=== PATIENT | female | born 1975 | race Caucasian/White ===

== ENCOUNTER 2017-03-17 06:06 | Inpatient (IN) ==
[2017-03-17] MEDS ORDERED: SODIUM CHLORIDE 0.9% INJ ONE ×2 (06:33→10:11)
[2017-03-17] MEDS ORDERED: PHENERGAN IV ONE ×2 (06:33→10:11)
--- NOTE | 2017-03-17 06:39 | PROVIDER DOCUMENTATION ---
HPI-Syncope/Dizziness - General Chief Complaint: Syncope Stated Complaint: SYNCOPE Time Seen by Provider: 03/17/17 06:21 Source: patient, family Allergies/Adverse Reactions: Patient Allergies Allergy/AdvReac Type Severity Reaction Status Date / Time morphine Allergy Mild ITCHING Verified 04/29/13 13:06 Home Medications: Home Medication List Medication Instructions Recorded Confirmed Last Taken Type Escitalopram [Lexapro] 20 mg PO DAILY 04/29/13 03/17/17 03/16/17 07:00 History Insulin Aspart [Novolog] 45 unit SQ BID 04/29/13 03/17/17 03/16/17 17:00 History ATORVAstatin [Lipitor] 10 mg PO DAILY 03/17/17 03/17/17 03/16/17 08:00 History Insulin Detemir [Levemir] 60 unit SQ BID 03/17/17 03/17/17 03/16/17 17:00 History - History of Present Illness-Syncope/Dizzy Nature of Presenting Problem: 41 yo WF had carpal tunnel surgery yesterday. Took a half of a hydrocodone yesterday afternoon and slept thru the night with reasonable comfort. She awoke this morning and got up to urinate. She was aware of increased pain in right wrist. As she was finishing on the toilet, she felt a wave of nausea and awoke on the floor. She was unaware of how long a time passed. She urinated on her self in the ambulance, but was alert awake and aware. Prior Episodes: reports: no prior history Onset/Duration: reports: this morning Timing: reports: still present Position/Activity at time of episode: reports: sitting Symptoms prior to episode: reports: none, lightheaded, nausea/vomiting, diaphoresis. denies: visual disturbance, racing heart, abdominal pain, recent head trauma, rapid heart beat Context: reports: lost consciousness, collapsed, incontinent of urine Loss of Consciousness: unsure Location of injury. (If syncope resulted in an injury.): reports: head Current Symptoms: reports: nausea, headache, lightheaded. denies: fever, chills , chest pain, breathing difficulty, short of breath, blurred vision Recently Seen Here or By Another Healthcare Provider: No - Dizziness Severity in ED: reports: moderate Dizziness Related Current/Associated Symptoms: reports: nausea/vomiting, headache, lightheaded Any recent trauma/injury?: reports: to head Review of Systems - Adult - REVIEW OF SYSTEMS - ADULT Constitutional: reports: no symptoms reported Eyes: reports: no symptoms reported Ears, Nose, Mouth & Throat: reports: other Cardiovascular: reports: no symptoms reported Respiratory: reports: no symptoms reported Gastrointestinal: reports: nausea Genitourinary: reports: no symptoms reported Musculoskeletal: reports: no symptoms reported Integumentary: reports: no symptoms reported Neurological: reports: no symptoms reported Psychiatric: reports: no symptoms reported Endocrine: reports: no symptoms reported Hematologic/Lymphatic: reports: no symptoms reported Allergic/Immunologic: reports: no symptoms reported All Other Systems: Reviewed and Negative Past History - Adult - PAST MEDICAL HISTORY-ADULT Review of Records: reports: Nursing Assessment Review, Medications Reviewed, Social history reviewed & non-contributory. Diabetes Type: Type 2 Diabetes controlled by:: PO Meds - PRIOR SURGERIES/PROCEDURES Surgical/Procedure History: reports: other (CTS, laparascopy) - FAMILY HISTORY Family History: reviewed, not pertinent - SOCIAL HISTORY Smoking: non-smoker Substance Use: none/never Alcohol Use Frequency: never Physical Exam-General - PHYSICAL EXAM-ADULT Initial Vital Signs Reviewed: Yes - CONSTITUTIONAL General Appearance: alert, mild distress - EYES Eyes: PERRL/EOMI, pink conjunctivae, other (right frontotemporal area is tender and slightly swollen) - HEAD, EARS, NOSE, MOUTH & THROAT HENMT: moist mucous membranes - NECK Neck: non-tender, full range of motion. negative: carotid bruit, C-spine tenderness - RESPIRATORY Respiratory: lungs clear, normal breath sounds, no pleuratic chest pain, no respiratory distress, no accessory muscle use - CARDIOVASCULAR Cardiovascular: normal peripheral pulses, regular rate, rhythm, no edema, no JVD - GASTROINTESTINAL (ABDOMEN) Abdominal Exam: normal bowel sounds, non tender, soft. negative: tenderness - MUSCULOSKELETAL Back Exam: no CVA tenderness Extremity: no pedal edema, no calf tenderness, other (PAULA bandage on right hand and wrist, but able to move through reasonable ROM, there is bruising on the palm but not excessive) - SKIN Integumentary: normal color, normal turgor - NEUROLOGIC Neurologic: grossly normal, no motor/sensory deficits - PSYCHIATRIC Psych/Mental Status: normal thought content, normal thought process, oriented x 3, anxious Progress - PLAN OF CARE/RESULTS Progress/Plan/Lab Results: Vital Signs - 8 hr 07/14/17 06:19 Temperature 98.0 F Pulse Rate 92 H Respiratory Rate 20 Blood Pressure 152/77 O2 Sat by Pulse Oximetry 97 Laboratory Results - last 24 hr 03/17/17 03/17/17 03/17/17 06:12 07:26 07:26 WBC 7.23 RBC 4.27 Hgb 12.5 Hct 36.0 L MCV 84.3 MCH 29.3 MCHC 34.7 RDW Std Deviation 12.4 Plt Count 193 MPV 10.9 H Immature Gran % (Auto) 0.0 Neut % (Auto) 79.9 H Lymph % (Auto) 12.3 L [place] % (Auto) 6.9 Eos % (Auto) 0.8 Baso % (Auto) 0.1 Immature Gran # (Auto) 0.00 Neut # (Auto) 5.77 Lymph # (Auto) 0.89 L [place] # (Auto) 0.50 Eos # (Auto) 0.06 Baso # (Auto) 0.01 Sodium 134 L Potassium 3.8 Chloride 97 L Carbon Dioxide 21 L Anion Gap 16 BUN 7 L Creatinine 0.6 Estimated GFR/1.73 m2 > 60 BUN/Creatinine Ratio 12 Glucose 260 H POC Glucose 264 H Calculated Osmolality 275 Calcium 8.3 L Total Bilirubin 0.78 AST 41 H ALT 50 H Alkaline Phosphatase 65 Troponin T Total Protein 7.4 Albumin 3.9 Globulin 3.5 Albumin/Globulin Ratio 1.1 Urine Source Urine Color Urine Turbidity Urine pH Ur Specific [place] Urine Protein Ur Glucose (Stick) Ur Ketones (Stick) Urine Blood Urine Nitrite Urine Bilirubin Urobilinogen Dipstick Urine Leukocytes Urine WBC (Auto) Urine RBC (Auto) U Epithel Cells (Auto) Urine Bacteria (Auto) 03/17/17 03/17/17 07:26 10:48 WBC RBC Hgb Hct MCV MCH MCHC RDW Std Deviation Plt Count MPV Immature Gran % (Auto) Neut % (Auto) Lymph % (Auto) [place] % (Auto) Eos % (Auto) Baso % (Auto) Immature Gran # (Auto) Neut # (Auto) Lymph # (Auto) [place] # (Auto) Eos # (Auto) Baso # (Auto) Sodium Potassium Chloride Carbon Dioxide Anion Gap BUN Creatinine Estimated GFR/1.73 m2 BUN/Creatinine Ratio Glucose POC Glucose Calculated Osmolality Calcium Total Bilirubin AST ALT Alkaline Phosphatase Troponin T < 0.010 Total Protein Albumin Globulin Albumin/Globulin Ratio Urine Source CLEAN CATCH Urine Color STRAW Urine Turbidity CLEAR Urine pH 7.5 Ur Specific [place] 1.005 Urine Protein NEGATIVE Ur Glucose (Stick) >1000 A Ur Ketones (Stick) 10 A Urine Blood NEGATIVE Urine Nitrite NEGATIVE Urine Bilirubin NEGATIVE Urobilinogen Dipstick NORMAL Urine Leukocytes NEGATIVE Urine WBC (Auto) <10 Urine RBC (Auto) <10 U Epithel Cells (Auto) <10 Urine Bacteria (Auto) NEGATIVE Orders Category Date Time Status FSBS [Finger Stick Blood Sugar (ED)] DIRECTED Care 03/17/17 06:07 Active HEAD W/O CONTRAST [CT] Stat Exams 03/17/17 06:32 Completed CBC WITH ELECTRONIC DIFF [HEME] Stat Lab 03/17/17 07:26 Completed COMPREHENSIVE METABOLIC PANEL [CHEM] Stat Lab 03/17/17 07:26 Completed TROPONIN T Stat Lab 03/17/17 07:26 Completed URINALYSIS W/POSS RFLX CULT [URINALYSIS] Stat Lab 03/17/17 10:48 Completed 0.9% Sodium Chloride Inj [Ns] 500 ml Med 03/17/17 07:43 Discontinued .ROUTE As Directed 0.9% Sodium Chloride Inj [Ns] 500 ml Med 03/17/17 07:29 Discontinued IV 999 mls/hr Promethazine [Phenergan] Med 03/17/17 06:33 Discontinued 25 mg IV NOW ONE Promethazine [Phenergan] Med 03/17/17 10:11 Discontinued 25 mg IV NOW ONE Sodium Chloride 0.9% Med 03/17/17 06:33 Discontinued 10 ml INJ NOW ONE Sodium Chloride 0.9% Med 03/17/17 10:11 Discontinued 10 ml INJ NOW ONE EKG [EKG] Stat Ther 03/17/17 06:07 Draft Result Diagrams: 03/17/17 07:26 03/17/17 07:26 - REASSESSMENT Reassessment #1 Time Reassessed: 10:00 (weak, dizzy, nausea) Status: improving Reassessment #2 Time Reassessed: 11:30 Status: unchanged - CT/MRI 1 CT Study: Head Impression: Normal CT Results: no acute pathology - CONSULTS/PCP/HOSPITALIST Notification #1 *Consult/PCP/Hospitalist*: Cates Time Discussed: 12:45 Reason/Comments: spoke with Denilson M Consult Disposition: Admit Departure - Departure Date of Disposition Decision: 03/17/17 Time of Disposition Decision: 12:45 DIAGNOSIS: Post-concussion vertigo, Nausea Disposition: ADMITTED INPATIENT 09 Certified Medical Emergency: Emergent Condition: Stable Referrals and Follow-Ups: None,PCP [Clinical Support] - - Critical Care Note This patient required my direct & personal management of CC.: Yes
--- NOTE | 2017-03-17 06:41 | EKG Report ---
Test Performed on : 03/17/2017 06:14:38 AM Test Reason : syncope Blood Pressure : / mmHG Vent. Rate : 092 BPM Atrial Rate : 092 BPM P-R Int : 162 ms QRS Dur : 086 ms QT Int : 390 ms P-R-T Axes : 047 -06 004 degrees QTc Int : 482 ms Normal sinus rhythm. Moderate voltage criteria for LVH, may be normal variant Prolonged QT Abnormal ECG No previous ECGs available Unconfirmed Result
--- NOTE | 2017-03-17 07:11 | Diag Imaging Result Doc PS360 ---
EXAM: HEAD W/O CONTRAST HISTORY: fall, syncope, right forehead/temporal pain TECHNIQUE: CT brain without COMPARISON: None. FINDINGS: No parenchymal hemorrhage. No epidural or subdural hematoma. No subarachnoid hemorrhage. No mass identified on this noncontrasted exam. No hydrocephalus. No sinus opacification. No fracture. IMPRESSION: No hemorrhage. No injury. Electronically signed by Kameron Moya 03/17/2017 7:09 AM
[2017-03-17] MEDS ORDERED: NS 500 ML IV ONE (07:29)
[2017-03-17] MEDS ORDERED: NS 500 ML ONE (07:43)
[2017-03-17 07:47] LABS: MANUAL DIFF NEEDED? NO
[2017-03-17 07:49] LABS: BASO% 0.1 % (0.0-0.8); EOS# 0.06 X1000 (0.0-0.7); EOS% 0.8 % (0.0-10.0); HEMOGLOBIN 12.5 g/dL (12.0-16.0); LYMPH# 0.89 X1000 (1.2-3.4); LYMPH% 12.3 % (20.5-51.1); MCH 29.3 PG (27-31); MCHC 34.7 g/dL (33-37); MCV 84.3 FL (81-99); MONO% 6.9 % (1.7-9.3); MPV 10.9 FL (7.4-10.4); NEUT% 79.9 % (42.2-75.2); PLT 193 X1000 (130-400); RBC 4.27 XMIL (4.2-5.4)
[2017-03-17 08:13] LABS: AGAP 16; ALBUMIN 3.9 g/dL (3.5-5.0); ALKALINE PHOSPHATASE 65 U/L (32-104); BUN 7 mg/dL (8-22); CALCIUM 8.3 mg/dL (8.8-10.2); CHLORIDE 97 mmol/L (98-107); COSMO 275; GOT 41 U/L (10-30); GPT 50 U/L (10-36); POTASSIUM 3.8 mmol/L (3.5-5.1); SODIUM 134 mmol/L (136-145); TCO2 21 mmol/L (25-35); TOTAL BILIRUBIN 0.78 mg/dL (0.20-1.00); TOTAL PROTEIN 7.4 g/dL (6.3-8.3)
[2017-03-17 10:58] LABS: URINE CULTURE NEEDED? NO; URINE MICRO REVIEW NEEDED? NO; URINE SOURCE CLEAN CATCH
[2017-03-17 11:05] LABS: BILIRUBIN URINE NEGATIVE (NEGATIVE); BLOOD URINE NEGATIVE (NEGATIVE); COLOR STRAW; GLUCOSE URINE >1000 mg/dL (NEGATIVE); LEUKOCYTES URINE NEGATIVE (NEGATIVE); NITRITE URINE NEGATIVE (NEGATIVE); PH URINE 7.5; PROTEIN URINE NEGATIVE (NEGATIVE); SP GRAVITY URINE 1.005; TURBIDITY URINE CLEAR (CLEAR); UROBILINOGEN URINE NORMAL (NORMAL)
[2017-03-17 11:06] LABS: UR EPITHELIAL CELLS <10 /HPF (<10); URINE BACTERIA NEGATIVE /HPF; URINE RBC <10 /HPF (<10); URINE WBC <10 /HPF (<10)
[2017-03-17] MEDS ORDERED: PHENERGAN IV PRN (14:20)
[2017-03-17] MEDS ORDERED: SODIUM CHLORIDE 0.9% INJ PRN (14:20)
[2017-03-17] MEDS ORDERED: ZOFRAN IV PRN (14:20)
[2017-03-17 14:25] LABS: HEMOGLOBIN A1C 7.3 % (4.8-6.0)
--- NOTE | 2017-03-17 14:28 | Diag Imaging Result Doc PS360 ---
EXAM: CHEST-PORTABLE HISTORY: dyspnea TECHNIQUE: Portable upright AP COMPARISON: None. FINDINGS: The lungs are well expanded. The heart is not enlarged. The vessels are not distended. No pneumonia. No pleural effusions identified. IMPRESSION: Negative chest. Electronically signed by Kameron Moya 03/17/2017 2:25 PM
[2017-03-17 14:38] LABS: ACETONE SERUM NEGATIVE (NEGATIVE)
[2017-03-17 15:00] LABS: AGAP 22; BUN 6 mg/dL (8-22); CALCIUM 8.9 mg/dL (8.8-10.2); CHLORIDE 96 mmol/L (98-107); COSMO 279; MAGNESIUM 1.7 mg/dL (1.5-2.7); POTASSIUM 4.5 mmol/L (3.5-5.1); SODIUM 137 mmol/L (136-145); TCO2 19 mmol/L (25-35)
--- NOTE | 2017-03-17 15:04 | Diag Imaging Result Doc PS360 ---
EXAM: US GB < RUQ (LIMITED) HISTORY: n/v elevated alt/ast TECHNIQUE: COMPARISON: None. FINDINGS: Difficult exam due to bowel gas and patient's body habitus. The aorta and inferior vena cava are poorly seen. There is fatty infiltration of the liver. Normal gallbladder. No stones. The gallbladder wall is not thickened. The common bile duct measures 6 mm. Normal right kidney. No hydronephrosis. No ascites in the right upper quadrant. The pancreas is poorly seen. IMPRESSION: Fatty infiltration of the liver. Electronically signed by Kameron Moya 03/17/2017 3:02 PM
[2017-03-17] MEDS: NS 1,000 ML IV SCH (16:10)
[2017-03-17] MEDS: LOVENOX SUBQ SCH (17:19)
--- NOTE | 2017-03-17 17:31 | HISTORY AND PHYSICAL ---
CHIEF COMPLAINT: Syncope. HISTORY OF PRESENT ILLNESS: Mrs. Taylor is a 41-year-old female with a history of morbid obesity, poorly controlled type 2 diabetes requiring large amounts of insulin, hypertension and hyperlipidemia who is status post right carpal tunnel release yesterday in [place] by Dr. Taylor. She was in her normal state of health last night, woke up this morning started having some vomiting, went to the bathroom went and sat down on the toilet to urinate. She then just remembers waking up on the floor at which time she came to the ER. This was an unwitnessed syncopal episode, time of unconsciousness is unknown. When she woke up she states that she was nauseated and dizzy and disoriented. She denies any chest pain. No unilateral weakness. No shortness of breath, cough, congestion, fever or chills. No diarrhea, no lower extremity edema and no orthopnea. In the ER she had labs and diagnostics done. Her initial labs were fairly consistent with at least mild diabetic ketoacidosis, she had an elevated metabolic anion gap acidosis with a blood sugar of 264. Urine showed greater than 1000 glucose and 10 ketones. Since that time she has been given IV fluids and we are now going to recheck a BMP to check her fluid and electrolyte status. Head CT done did not show anything acute. Her vitals are stable, there are no focal deficits and she is now going to be admitted for observation status. PAST MEDICAL HISTORY: 1. Uncontrolled type 2 diabetes requiring insulin. The patient only reports checking her blood sugar around twice a week. She is on around 200 units of insulin daily. 2. Hypertension. 3. Hyperlipidemia. 4. Morbid obesity. SURGICAL HISTORY: She has had , right carpal tunnel release, D and C . SOCIAL HISTORY: Patient denies tobacco, alcohol or drug use. She is , and daughter at the bedside. FAMILY HISTORY: Noncontributory. REVIEW OF SYSTEMS: Fourteen-point review of systems obtained found to be negative with the exception of the HPI. ALLERGIES: Morphine. HOME MEDICATIONS: Lipitor 10 mg daily, Lexapro 20 mg daily, NovoLog 45 units subcutaneous b.i.d., Levemir 60 units subcu b.i.d. PHYSICAL EXAMINATION: VITAL SIGNS: Blood pressure is 152/77, heart rate is 120, respiratory 22, O2 saturation 97% on room air, temperature is 98 degrees. GENERAL: Morbidly obese female laying in hospital bed in no acute distress. NEUROLOGIC: The patient is awake, alert, oriented. She follows commands without focal deficits. HEENT: Head atraumatic and normocephalic. Pupils equal, round, reactive to light. Oral mucosa dry. Trachea is midline. No JVD. No carotid bruits. CHEST: Clear to auscultation bilaterally. CV: Regular rate and rhythm. S1-S2 is noted. There are no murmurs. GI: Soft, nondistended, nontender. Bowel sounds are active. EXTREMITIES: Right upper extremity with Avinash bandage that is clean, dry and intact. Lower extremities without edema, clubbing or cyanosis. Pulses are palpable bilaterally. DIAGNOSTIC DATA: Head CT does not show anything acute. Chest x-ray is pending. EKG sinus rhythm, 92 beats a minute with no acute ST or T abnormalities. Lab work WBC 7.23, hemoglobin 12.5, hematocrit 36, platelet count 193,000. Sodium 134, potassium 3.8, chloride 97, CO2 21, anion gap 16, BUN 7, creatinine 0.6, glucose 260, calcium 8.3, AST 41, ALT 50, alkaline phosphatase 65, troponin negative, albumin 3.9, UA shows greater than 1000 glucose, 10 ketones. ASSESSMENT AND PLAN: 1. Syncope: This is felt to be vasovagal complicated by dehydration/volume depletion. Initial labs are consistent with volume depletion and possibly diabetic ketoacidosis. We are going to give her some IV fluids and check an echocardiogram and continue to trend her enzymes. She is at risk for cardiovascular and cerebrovascular disease with poorly controlled diabetes and morbid obesity so will make sure watch telemetry and follow up on echocardiogram. 2. Nausea, vomiting: Unclear of the significance, she has very mildly elevated AST and ALT. Will check a right upper quadrant ultrasound, continue IV fluids and antiemetics. If she is in DKA we will of course put her on the DKA protocol. 3. Elevated anion gap metabolic acidosis. Labs suggest diabetic ketoacidosis. We are checking electrolytes now and will treat accordingly. She has gotten IV fluids so it is possible that this has resolved the issue, but we will treat accordingly. 4. Poorly controlled diabetes: The patient will need diabetic education. Will add pattern sugars and sliding scale insulin, check hemoglobin A1c and thyroid function. 5. Deep vein thrombosis prophylaxis will be provided with Lovenox. Further recommendations to follow. Dictated by DAVID Lucero for Chase Corbin MD cc: DAVID Lucero MD MTDD
[2017-03-17] MEDS: HUMALOG SUBQ SCH (22:51)
[2017-03-18] MEDS: NS 1,000 ML IV SCH ×2 (00:52→06:24)
[2017-03-18 05:08] LABS: HEMATOCRIT 33.7 % (37.0-47.0); HEMOGLOBIN 11.2 g/dL (12.0-16.0); MCH 29.4 PG (27-31); MCHC 33.2 g/dL (33-37); MCV 88.5 FL (81-99); MPV 10.7 FL (7.4-10.4); RBC 3.81 XMIL (4.2-5.4)
[2017-03-18 05:27] LABS: AGAP 13; BUN 8 mg/dL (8-22); CALCIUM 8.5 mg/dL (8.8-10.2); CHLORIDE 102 mmol/L (98-107); COSMO 284; MAGNESIUM 1.8 mg/dL (1.5-2.7); POTASSIUM 3.9 mmol/L (3.5-5.1); SODIUM 140 mmol/L (136-145); TCO2 25 mmol/L (25-35)
[2017-03-18] MEDS: HUMALOG SUBQ SCH ×4 (06:25→20:20)
[2017-03-18] MEDS: LEXAPRO PO SCH (08:20)
[2017-03-18] MEDS: 1/2 NS 1,000 ML IV SCH ×2 (09:29→23:05)
[2017-03-18] MEDS: LEVEMIR SUBQ SCH ×2 (09:29→20:19)
[2017-03-18] MEDS: TYLENOL PO PRN (10:02)
--- NOTE | 2017-03-18 11:12 | PROGRESS NOTE ---
DATE: 03/18/2017 SUBJECTIVE: This patient states that she is feeling better, she is tolerating diet. She is having a mild headache generalized. Family members at the bedside. We discussed about her DKA. We discussed about diet, exercise and treatment. All their questions were answered. OBJECTIVE: Vital Signs: Temperature 98.1 degrees, pulse 70, respiratory rate 16, blood pressure 157/80 O2 saturation 98 on room air. HEENT: Head normocephalic. No trauma. PERRLA. Neck: Supple. No JVD. No masses. Central trachea. Chest: Clear to auscultation. No wheezing. No rales. Abdomen: Soft, nontender, nondistended. No hepatosplenomegaly. Extremities: No edema. No clubbing. No cyanosis. She has a right wrist dressing. She recently had a surgery done there, carpal tunnel syndrome. Neurological: The patient is alert and oriented x3. No focal neurological deficits. LABORATORY: WBC 5.3, hemoglobin 11.2, hematocrit 33.7, platelet 192,000. Sodium 140, potassium 3.9, chloride 102, bicarbonate 25, BUN 8, creatinine 0.8, glucose 225, calcium 8.5, magnesium 1.8. ASSESSMENT AND PLAN: 1. Diabetes ketoacidosis, resolved, this patient was on an insulin drip. That was stopped. I will start this patient on Levemir twice a day 60 units subcutaneously. I discussed with the patient diet, exercise and treatment. She is complaining of mild headache and I will add Tylenol to her medications. 2. Syncope. This is likely related to dehydration and DKA, she is feeling much better. Cardiac enzymes were ordered and they have been negative x2. Also an echocardiogram has been ordered. Pending results. The rest of the studies were normal. 3. Nausea and vomiting. Resolved. Likely secondary to DKA. 4. Anion gap metabolic acidosis likely secondary to #1. 5. Poorly controlled diabetes. Her hemoglobin A1c is 7.3, but the patient told me that her hemoglobin A1c has been high previously. 6. Deep vein thrombosis prophylaxis. Continue with Lovenox. Overall, this patient is doing better. The insulin drip has been stopped. We will start with Levemir twice a day, and sliding scale insulin. I will keep this patient in the [facility]. We will start diet and physical therapy. Probably this patient will be discharged tomorrow if the echocardiogram and everything else is okay. CRITICAL CARE TIME: 35 minutes. cc: Chase Corbin MD
[2017-03-18] MEDS ORDERED: MIRALAX PO ONE (16:25)
[2017-03-18] MEDS: LOVENOX SUBQ SCH (16:50)
[2017-03-19 05:45] LABS: MANUAL DIFF NEEDED? NO
[2017-03-19 05:54] LABS: BASO% 0.4 % (0.0-0.8); EOS# 0.14 X1000 (0.0-0.7); EOS% 2.7 % (0.0-10.0); HEMATOCRIT 34.6 % (37.0-47.0); HEMOGLOBIN 11.7 g/dL (12.0-16.0); LYMPH# 1.45 X1000 (1.2-3.4); LYMPH% 27.5 % (20.5-51.1); MCH 29.2 PG (27-31); MCHC 33.8 g/dL (33-37); MCV 86.3 FL (81-99); MONO% 7.6 % (1.7-9.3); MPV 10.6 FL (7.4-10.4); NEUT% 61.8 % (42.2-75.2); PLT 192 X1000 (130-400); RBC 4.01 XMIL (4.2-5.4)
[2017-03-19] MEDS: HUMALOG SUBQ SCH ×4 (06:01→21:04)
[2017-03-19 06:16] LABS: AGAP 11; BUN 7 mg/dL (8-22); CALCIUM 8.8 mg/dL (8.8-10.2); CHLORIDE 100 mmol/L (98-107); COSMO 274; POTASSIUM 3.9 mmol/L (3.5-5.1); SODIUM 136 mmol/L (136-145); TCO2 25 mmol/L (25-35)
[2017-03-19] MEDS: TYLENOL PO PRN ×2 (06:20→19:06)
[2017-03-19] MEDS ORDERED: PNEUMOVAX 23 IM ONE (06:42)
--- NOTE | 2017-03-19 07:50 | ECHO REPORT ---
ORDER DATE: 03/17/2017 INTERPRETING PHYSICIAN: Dr. Gill REQUESTING PHYSICIAN: CLINICAL INDICATIONS: A 41-year-old female with syncope, morbidly obese, diabetes. M-MODE MEASUREMENTS: Right ventricle: 3.6 cm. Left ventricle end diastole: 3.5 cm. Left ventricle end systole: 2.7 cm. Posterior wall: 1.1 cm. Interventricular septum: 1.1 cm. Left atrium: 3.8 cm. Aortic root: 2.8 cm. SUMMARY OF 2-DIMENSIONAL IMAGING: This study was technically limited. The patient is morbidly obese. The left ventricle appears to be normal in size and function. The ejection fraction is estimated to be at 60%. No definite wall motion abnormality is noted. The right ventricle appears to be mild to moderately enlarged. It shows normal function. The aortic valve looks normal. Color flow mapping is within normal range. The mitral valve looks normal. Color flow mapping also normal. Pulse wave Doppler of mitral inflow shows reversal of the E and the A wave. Tissue Doppler of septal and lateral mitral annulus could not be obtained accurately in this case because the study was done off axis. Diastolic function is undetermined in this case. The tricuspid valve appears to be grossly normal. Color flow mapping unremarkable. Pulmonary pressure could not be estimated in this case. The pulmonic valve appears to be grossly normal. Color flow mapping unremarkable. There is no pericardial effusion, masses or thrombus. Clinical correlation is strongly recommended. Again, this study was technically very limited. cc: MD Alejandro Corbin CRNP
[2017-03-19] MEDS ORDERED: INSULIN PEN NEEDLES ONE (08:11)
[2017-03-19] MEDS: MIRALAX PO SCH ×2 (08:25→21:03)
[2017-03-19] MEDS: LEVEMIR SUBQ SCH ×2 (08:25→21:03)
[2017-03-19] MEDS: LEXAPRO PO SCH (08:25)
[2017-03-19] MEDS: ANTIVERT PO SCH ×4 (08:50→17:05)
[2017-03-19] MEDS: COLACE PO SCH ×2 (08:50→21:03)
--- NOTE | 2017-03-19 09:28 | PROGRESS NOTE ---
DATE: 03/19/2017 SUBJECTIVE: Ms. Taylor was admitted on 03/17/2017. Her states that he had gone to work. She had recently got carpal tunnel surgery. Had gone to the bathroom. Last thing she remembered was sitting on the commode and then she woke up on the floor. She had passed out. She has a history of morbid obesity, poorly controlled type 2 diabetes mellitus and required large amounts of insulin, history of hypertension, hyperlipidemia, status post right carpal tunnel release on the I believe or the . Started having some vomiting. Went to the bathroom. Went and sat down on the toilet to urinate and then she was found on the floor. She was brought to the emergency room. Unwitnessed syncopal episode. Time of unconsciousness unknown. She woke up, states that she was nauseated, dizzy, and disoriented. In the emergency room, labs were consistent with mild diabetic ketoacidosis, a little bit of dehydration. She had elevated metabolic anion gap acidosis. Blood sugar 264. Urine showed greater than 1000 glucose and 10 ketones. She was given some IV fluids and she has improved. She still gets vertigo with movement. PHYSICAL EXAMINATION: Vital Signs: Today, temperature 97.5 degrees, pulse 80, respirations 18, blood pressure 116/44. HEENT: Pupils are equal and round. Lungs: Clear in all lung [place]. Cardiovascular Examination: Regular rhythm and rate without murmur or S3. Abdomen: Soft. Skin: Warm and dry. Is and Os: Urine output yesterday was almost 4 L. LABS: This morning, white count 5270, hematocrit 34, platelet count 192,000. Chemistry: Sodium 136, potassium 3.9, chloride 100, bicarb 25, BUN 7, creatinine 0.7, blood sugar 198, 163, 163. ASSESSMENT AND PLAN: 1. Diabetic ketoacidosis, mild. She had an insulin drip. This was stopped. Doing better. Sugars appear much better controlled at 211, 217, 163. 2. Concussion is presumed. It sounds like she had some postconcussive vertigo and this may linger on for a while. She is ambulating, eating, and hungry today. 3. Nausea and vomiting, likely secondary to diabetic ketoacidosis as well as a concussion. 4. Anion gap acidosis, is improved. 5. Poorly controlled diabetes. Continue to adjust insulin. Continue to have her ambulate. It looks like sugars are coming down and nicely so advance encourage oral intake and we will add meclizine to her regimen. cc: Joshua Dodge MD
[2017-03-19] MEDS: 1/2 NS 1,000 ML IV SCH (13:42)
[2017-03-19] MEDS: LOVENOX SUBQ SCH (15:41)
[2017-03-20] MEDS: 1/2 NS 1,000 ML IV SCH (02:57)
[2017-03-20] MEDS: HUMALOG SUBQ SCH (06:42)
[2017-03-20 07:57] VITALS: BP 159/80
--- NOTE | 2017-03-20 08:26 | DISCHARGE SUMMARY ---
ADMISSION DATE: 03/17/2017 DISCHARGE DATE: PHYSICIAN: DAVID Rutherford. HISTORY OF PRESENT ILLNESS: Presented with syncope. Ms. Taylor is a 41-year-old with a history of morbid obesity, poorly controlled diabetes mellitus type 2 requiring large amount of insulin, hypertension, hyperlipidemia, status post right carpal tunnel release on 03/16/[address] [place] [address] Taylor. She was in her normal state of health when she woke up in the morning and started having some vomiting. Went to the bathroom and sat down on the toilet to urinate. She then remembered waking up on the floor at which time she came to the emergency room. This was an unwitnessed syncopal episode. Time of unconsciousness is unknown. When she woke up, she states she was nauseated and dizzy and disoriented. Denies any chest pain, no unilateral weakness. No shortness of breath, cough, congestion, fever, chills. No diarrhea. No lower extremity edema. No orthopnea. In the ER, she had labs and diagnostics done. Her initial labs were fairly consistent with mild diabetic ketoacidosis, elevated metabolic anion gap acidosis, and blood sugar of 264. Urine showed greater than 1000 blood sugar, glucose, and 10 ketones. She at that time had been given IV fluids. Her BMP and electrolyte status were going to be checked. Her CT which did not show anything acute, CT of the head. PAST MEDICAL HISTORY: To review again, past medical history of: 1. Uncontrolled diabetes mellitus on insulin. Reports checking her blood sugar twice a week, on 200 units of insulin daily. 2. Hypertension. 3. Hyperlipidemia. 4. Morbid obesity. PAST SURGICAL HISTORY: She has had a , right carpal tunnel release, D and C. HOSPITAL COURSE: She was admitted for syncope, suspect vasovagal, volume depletion and mild ketoacidosis were contributory factors. Also nausea and vomiting, and mild elevation of AST and ALT. This may be related to the previous anesthesia for carpal tunnel in combination with mild acidosis. She had elevated anion gap acidosis and labs suggest mildly ketotic. This could have been a combination of poor p.o. intake as well as insulin dependent acidosis. She continued to show improvement. She did have some vertigo. It is likely that she struck her head and had a concussion. She may have some postconcussive vertigo with a little bit of concussion to the inner ear. She showed improvement. Was able to walk around and tolerating food. Blood sugars were under good control. Acidosis corrected. [place] she could go home on 03/20/2017. DISCHARGE MEDICATIONS: She was also complaining of constipation so we gave her some Colace 100 mg b.i.d. She continued on Lexapro 20 mg a day, Levemir 60 units subcutaneous b.i.d. I let her have some Antivert as needed for vertigo 12.5 t.i.d., MiraLAX 17 g p.o. b.i.d., and she can take a baby aspirin. We will put her back on her left Lipitor which is 10 mg daily, leave her Levemir at 60 units subcutaneously b.i.d. Explained that if she is not eating or nauseated, she needs to cut the insulin in half, follow up with her primary care. cc: MD Xiomara Rodriguez
[2017-03-20] MEDS: COLACE PO SCH (08:57)
[2017-03-20] MEDS: LEXAPRO PO SCH (08:57)
[2017-03-20] MEDS: ANTIVERT PO SCH (08:57)
[2017-03-20] MEDS: MIRALAX PO SCH (08:57)
[2017-03-20] MEDS: LEVEMIR SUBQ SCH (08:58)
== END 2017-03-20 10:14 | disposition home or self-care (01) ==
LOC: ED 06:06 → 3S 06:06 → OBSVTOIN 15:24 → SUATTDRO 15:24
PROVIDERS: ATTEND Emergency Medicine